=== PATIENT | female | born 1975 | race Caucasian/White ===

== ENCOUNTER 2016-11-19 16:48 | Emergency (ER) | payer MEDICAID ==
[~2016-11-19] VITALS: Ht 177.8 cm; Wt 76.2 kg
[2016-11-19 16:50] VITALS: BP 138/90
== END 2016-11-19 18:20 | disposition left against medical advice (07) ==
LOC: ED 18:14
DX: R07.81 Pleurodynia (principal)

== ENCOUNTER 2018-07-27 02:37 | Emergency (ER) | payer MEDICAID ==
[~2018-07-27] VITALS: Ht 177.8 cm; Wt 76.9 kg
[2018-07-27 02:40] VITALS: BP 163/100
[2018-07-27] MEDS ORDERED: DIPHENHYDRAMINE 25 MG CAPSULE PO ONE (03:00)
[2018-07-27] MEDS ORDERED: DIPHENHYDRAMINE 25 MG CAPSULE ONE (03:24)
== END 2018-07-27 03:37 | disposition home or self-care (01) ==
LOC: ED 03:30
DX: L50.0 Allergic urticaria (principal); F17.200 Nicotine dependence, unspecified, uncomplicated; Z88.2 Allergy status to sulfonamides; Z88.5 Allergy status to narcotic agent
CPT/HCPCS: 99283; Q0163

== ENCOUNTER 2018-10-15 08:21 | Emergency (ER) | payer MEDICAID ==
[~2018-10-15] VITALS: Ht 177.8 cm; Wt 73.0 kg
--- NOTE | 2018-10-15 09:00 | NUR ---
Pt ambulated back to room without difficulty. Same as triage note. Pt states she is currently homeless. Provided with washcloths, soap and towel for her to wash up. Educated on clean catch urine sample and provided with specimen cup.
--- NOTE | 2018-10-15 09:07 | NUR ---
CINDY PA AT BS.
[2018-10-15] MEDS ORDERED: CEFTRIAXONE 250 MG ONE (09:17)
[2018-10-15] MEDS ORDERED: AZITHROMYCIN 250 MG TABLET ONE (09:18)
[2018-10-15] MEDS ORDERED: LIDOCAINE-MPF 1%, 2ML ONE (09:18)
--- NOTE | 2018-10-15 09:28 | NUR ---
PT MEDICATED PER ORDERS. WILL MONITOR FOR MED RXN THEN D/C. PT CALM, COOPERATIVE, UNDERSTANDS POC.
[2018-10-15] MEDS ORDERED: CEFTRIAXONE 250 MG IM ONE (09:30)
[2018-10-15] MEDS ORDERED: AZITHROMYCIN 250 MG TABLET PO ONE (09:30)
--- NOTE | 2018-10-15 09:51 | NUR ---
PT CALM, LYING IN GURNEY, DENIES ANY S/S OF MED RXN FOLLOWING ABX. ED PA PREPARING D/C INSTRUCTIONS.
[2018-10-15 10:22] VITALS: BP 141/92
--- NOTE | 2018-10-15 10:22 | NUR ---
D/C INSTRUCTIONS & F/U APPT RV'WD WITH PT, SHE VERBALIZES UNDERSTANDING. AMBULATED OUT OF ED WITHOUT DIFFICULTY.
== END 2018-10-15 10:25 | disposition home or self-care (01) ==
LOC: ED 09:14
DX: A54.9 Gonococcal infection, unspecified (principal)
CPT/HCPCS: 96372; 99283; J0696

== ENCOUNTER 2019-07-08 08:46 | Emergency (ER) | payer MEDICAID ==
[~2019-07-08] VITALS: Ht 177.8 cm; Wt 81.1 kg
[2019-07-08 08:49] VITALS: BP 149/84
[2019-07-08] MEDS ORDERED: DIPH,PERTUSS(ACELL),TET VAC/PF 0.5 ML IM-VACC ONE ×2 (09:02→09:30)
--- NOTE | 2019-07-08 09:21 | NUR ---
WOUND CLEANSED WITH SALINE, DRESSED WITH BANDAID. PT MEDICATED PER EMAR WITH TDAP VACCINE, TOLERATED WELL. PT GIVEN DC INSTRUCTIONS, PT A&O, RESPS EVEN AND UNLABORED, AMBULATORY TO DC DESK WITH STEADY GAIT.
== END 2019-07-08 09:22 | disposition home or self-care (01) ==
LOC: ED 09:15
DX: S80.811A Abrasion, right lower leg, initial encounter (principal); X58.XXXA Exposure to other specified factors, initial encounter; Y93.89 Activity, other specified; Y92.89 Other specified places as the place of occurrence of the external cause; Y99.8 Other external cause status
CPT/HCPCS: 90471; 90715; 99283

== ENCOUNTER 2019-10-14 13:40 | Emergency (ER) | payer MEDICAID ==
--- NOTE | 2019-10-14 13:46 | NUR ---
NO ANSWER IN LOBBY.
--- NOTE | 2019-10-14 13:54 | NUR ---
NO ANSWER IN LOBBY.
== END 2019-10-14 14:02 | disposition left against medical advice (07) ==
LOC: ED 13:51
DX: R22.9 Localized swelling, mass and lump, unspecified (principal); Z53.21 Procedure and treatment not carried out due to patient leaving prior to being seen by health care provider

== ENCOUNTER 2020-10-20 12:54 | Emergency (ER) | payer MEDICAID ==
[~2020-10-20] VITALS: Ht 177.8 cm; Wt 73.5 kg
--- NOTE | 2020-10-20 13:52 | NUR ---
PT AMBULATED TO BR WITH UPRIGHT/STEADY GAIT. RETURN WITH NO INCIDENCE. NAD NOTED.
[2020-10-20 14:17] VITALS: BP 146/88
[2020-10-20] MEDS ORDERED: AZITHROMYCIN 500 MG TABLET PO ONE (14:30)
[2020-10-20] MEDS ORDERED: CEFTRIAXONE 1,000 MG IM ONE (14:30)
[2020-10-20] MEDS ORDERED: AZITHROMYCIN 250 MG TABLET ONE (14:46)
[2020-10-20] MEDS ORDERED: CEFTRIAXONE 1,000 MG ONE (14:46)
--- NOTE | 2020-10-20 15:00 | NUR ---
Patient given discharge instructions and they have confirmed that they understand the instructions. Patient ambulatory with steady gait.
== END 2020-10-20 15:03 | disposition home or self-care (01) ==
LOC: ED 14:50
DX: L03.313 Cellulitis of chest wall (principal); L03.114 Cellulitis of left upper limb; L03.113 Cellulitis of right upper limb; F15.10 Other stimulant abuse, uncomplicated
CPT/HCPCS: 96372; 99283; J0696